=== PATIENT | female | born 1950 | race Caucasian/White ===

== ENCOUNTER 2021-01-05 16:26 | Emergency (ER) | payer MEDICARE, OTHER ==
[~2021-01-05] VITALS: Ht 167.6 cm; Wt 76.1 kg
--- NOTE | 2021-01-05 16:36 | NUR ---
BREASTER: NO EKG PER RENÉE CARUSO. PROVIDER SAW PT IN TRIAGE
--- NOTE | 2021-01-05 16:57 | NUR ---
drafter (cad) electronic: pt from lobby to room [id number]
--- NOTE | 2021-01-05 17:14 | NUR ---
First contact with pt. Pt reports this morning "I felt like my left eye was going crazy and moving around really fast, then I started to get tunnel vision." Pt reports all sx now resolved other than 2/10 "soreness" around L eye.
[2021-01-05] MEDS ORDERED: LIOT25TA10 PO (17:25)
[2021-01-05] MEDS ORDERED: LEVO88TA2 PO (17:25)
[2021-01-05] MEDS ORDERED: CALC0.5C9 PO (17:25)
--- NOTE | 2021-01-05 18:20 | NUR ---
PIV inserted per order. Pt denies other needs.
[2021-01-05 18:32] LABS: BASOPHILS % (AUTO) 1 % (0-1); EOSINOPHILS % (AUTO) 2 % (1-7); LYMPHOCYTES % (AUTO) 37 % (22-44); MEAN CORPUSCULAR HEMOGLOBIN 29.8 pg (27.0-34.8); MEAN CORPUSCULAR HGB CONC 33.5 g/dL (32.4-35.8); MEAN PLATELET VOLUME 8.6 fL (7.4-10.4); MONOCYTES % (AUTO) 8 % (2-9); NEUTROPHILS % (AUTO) 52 % (42-75); PLATELET COUNT 213 x10^3/uL (130-400); RED BLOOD COUNT 4.82 x10^6/uL (3.82-5.3); RED CELL DISTRIBUTION WIDTH 13.7 % (9.6-15.2)
[2021-01-05 18:33] LABS: MD NO
[2021-01-05 18:39] LABS: ALBUMIN 3.9 g/dL (3.4-5.0); CALCIUM 9.7 mg/dL (8.5-10.1); CHLORIDE 103 mmol/L (98-107)
--- NOTE | 2021-01-05 18:42 | NUR ---
Pt ambulatory to MRI at this time.
[2021-01-05 18:47] LABS: ANION GAP 7 mmol/L (5-15)
[2021-01-05 19:06] LABS: HCT (SEDRATE) 42.8 % (34.6-47.8)
--- NOTE | 2021-01-05 19:31 | NUR ---
ASSUMED CARE OF PATIENT. PATIENT IS BACK FROM MRI. VS STABLE. FAMILY IN ROOM. NO ACUTE DISTRESS NOTED. WILL CONTINUE TO MONITOR.
[2021-01-05] MEDS ORDERED: OMNIPAQUE 350 MG/ML, 100ML BOTTLE ONE (19:57)
--- NOTE | 2021-01-05 20:01 | NUR ---
PT WATCHING TV IN ROOM. NO ACUTE DISTRESS NOTED. VS STABLE. CALL LIGHT IN PLACE. WILL CONTINUE TO MONITOR.
[2021-01-05 20:18] VITALS: BP 138/68
--- NOTE | 2021-01-05 20:18 | NUR ---
PT AMBULATED TO BATHROOM
--- NOTE | 2021-01-05 21:09 | NUR ---
VS STABLE. NO ACUTE DISTRESS NOTED. PT HAS A RIDE HOME BY HER . PT READY FOR DISCHARGE. PT DISCHARGED PER DR MIRANDA.
== END 2021-01-05 21:11 | disposition home or self-care (01) ==
LOC: ED 18:39
DX: H53.122 Transient visual loss, left eye (principal); R94.31 Abnormal electrocardiogram [ECG] [EKG]; R51.9 Headache, unspecified
CPT/HCPCS: 36415; 70450; 70496; 70498; 70551; 80048; 82040; 85025; 85651; 93005; 99285; Q9967